=== PATIENT | female | born 1950 | race Caucasian/White ===

== ENCOUNTER 2020-04-21 12:00 | Outpatient (RCR) | payer MEDICARE, SELFPAY ==
[2020-04-21] MEDS: COVID-19 VACC, MRNA(PFIZER)/PF 30 MCG/0.3 ML SYRINGE IM (10:05)
[2020-05-12] MEDS: COVID-19 VACC, MRNA(PFIZER)/PF 30 MCG/0.3 ML SYRINGE IM (09:57)
== END 2020-07-19 23:59 ==
LOC: IMMUN 12:00
PROVIDERS: PCP Family Medicine; Visit Provider Family Medicine
DX: Z23 Encounter for immunization (principal)
CPT/HCPCS: 0001A; 0002A; 91300

== ENCOUNTER 2021-04-10 15:50 | Outpatient (CLI) | payer MEDICARE, SELFPAY ==
--- NOTE | 2021-04-10 | IMM_PTH ---
PATIENT: JUAN MANUEL ELIZABETH V LOC: VU U#:[id number] AGE/SX: 70/F ROOM: RE04/10/[address]: Dr. Pola Rock DO : 1950 BED: DIS: 04/10/2021 SPEC #: [id number] RECD: 04/12/21 14:51 STATUS: SHANNON REQ #: [id number] ZE: 04/10/21 00:[address]: Pola Rock DEPT: IMMUNOHISTOCHEMISTRY RECD BY: Aubrie Zaman ENTERED: 04/12/21 14:52 SP TYPE: IMMUNO OTHR DR: Dr. José Cho MD Tissues: Vertebra, NOS Procedures: BCL-2 (add) BCL-6 (add) CD10 (add) CD20 (add) CD23 (add) CD3 (add) CD30 (add) CD45 (add) CD5 (add) CD79A (add) CYCLIN (add) MACRO (add) MUM1 (add) Pankeratin (initial) PHYSICIAN & [address] [address] SPECIMEN INFORMATION: Tissue Source: L2 vertebral body Clinical Info: Wedge compression fracture L2 Specimen Number: [id number] CPT code: 48670, 93654 x13 METHODOLOGY: Deparaffinized sections of prefer/formalin-fixed tissue or PAP/DQ stained slides are incubated with monoclonal/polyclonal antibodies/oligonucleotide probes. Localization is made via biotin free immunoperoxidase method. Appropriate controls are performed and reacted as expected. Results on target cell population are indicated in the following table: RESULTS: ANTIBODY / CLONE RESULT AE1-3 (AE1/AE3/PCK26) negative CD3 (PS1) positive CD5 (SP10) positive CD20 (L26) positive, focal CD45 (RP2/18) positive CD79a (11E3) positive, focal BCL-2 (bcl-2/100/D5) positive Macro (HAM-56) negative CD10 (56C6) negative BCL-6 (KL246B/A8) negative CD30 (Amadeo-H2) negative MUM1 (MRQ-43) negative CD23 (1B12) negative Cyclin D1/BCL-1 (SP4) negative These tests were developed and their performance characteristics determined by [facility]. They may not have been cleared or approved by the [place]. Food and Drug Administration. The FDA has determined that such clearance or approval is not necessary. The above immunohistochemical/dualISH markers are ordered and reviewed by the Pathologist. INTERPRETATION: L2 vertebral body: Consistent with polytypic lymphoid aggregate. See comment. AM:cornelius 04/14/2021 Comment: The lymphoid aggregate consists primarily of small T-cells.
--- NOTE | 2021-04-10 | BON_PTH ---
PATIENT: JUAN MANUEL ELIZABETH V LOC: VU U#:[id number] AGE/SX: 70/F ROOM: RE04/10/[address]: Dr. Pola Rock DO : 1950 BED: DIS: 04/10/2021 SPEC #: [id number] RECD: 04/10/21 15:04 STATUS: SHANNON MAIERPaulina #: [id number] ZE: 04/10/21 00:[address]: Pola Rock DEPT: SURGICAL PATHOLOGY RECD BY: Adalberto Cardenas ENTERED: 04/11/21 10:52 SP TYPE: Bone OTHR DR: Dr. José Cho MD [facility] Tissues: Vertebra, NOS Procedures: Decalcification bone/plaque Surgery Specimen Level V HEADER OPERATION: L2 kyphoplasty PRE-OP DIAGNOSIS: Wedge compression fracture L2 TISSUE SUBMITTED: L2 vertebral body MICROSCOPIC DIAGNOSIS L2 vertebral body, core biopsy: Reactive and reparative change. Benign lymphoid aggregate. See comment. AM:cornelius 04/12/2021 COMMENT Immunohistochemistry ([id number]) supports the above diagnosis. Case has been reviewed in consultation with Dr. Gibson who concurs with the above diagnosis. IDC:[email or web address] MICROSCOPIC DESCRIPTION Slides are reviewed. GROSS DESCRIPTION Received in fixative is one container labeled with the patient's name and designated L2 vertebral body. The specimen consists of an elongated piece of bone measuring 1.5 cm in length and 0.1 cm in diameter. The specimen is totally submitted in one cassette after decalcification. / ARMANDO:cornelius 04/11/2021 TC:5 CPT: 75453, 93151
== END 2021-04-10 23:59 | disposition home or self-care (01) ==
PROVIDERS: PCP Family Medicine; Visit Provider Orthopaedic Surgery
DX: S32.020A Wedge compression fracture of second lumbar vertebra, initial encounter for closed fracture (principal); X58.XXXA Exposure to other specified factors, initial encounter
CPT/HCPCS: 88305; 88307; 88311; 88341; 88342